=== PATIENT | male | born 1995 | race African-American/Black ===

== ENCOUNTER 2018-12-08 12:18 | Emergency (ER) | payer OTHER ==
[~2018-12-08] VITALS: Ht 180.3 cm; Wt 104.3 kg
[2018-12-08] MEDS ORDERED: MEDROLDOSEPACK PO (12:43)
[2018-12-08] MEDS ORDERED: TRAMADOL 50 MG50 MG PO (12:43)
[2018-12-08 12:59] VITALS: BP 154/100
== END 2018-12-08 13:00 | disposition home or self-care (01) ==
LOC: M.ERS 12:18
DX: S16.1XXA Strain of muscle, fascia and tendon at neck level, initial encounter (principal); S39.012A Strain of muscle, fascia and tendon of lower back, initial encounter; R07.89 Other chest pain; V89.2XXA Person injured in unspecified motor-vehicle accident, traffic, initial encounter; Y93.89 Activity, other specified; Y92.89 Other specified places as the place of occurrence of the external cause; Y99.8 Other external cause status